=== PATIENT | female | born 1955 | race Caucasian/White ===

== ENCOUNTER → 2017-09-14 09:58 | Outpatient (POV) | payer OTHER, SELFPAY ==
[2017-09-14 10:15] VITALS: BP 127/75; PULSE 83; RESP 18; O2SAT 98
--- NOTE | 2017-09-14 10:39 | [facility]H.PMCON ---
Assessment and Plan (1) Degenerative disc disease, lumbar Current visit: Yes Status: Chronic Category: Medical Code(s): M51.36 - Other intervertebral disc degeneration, lumbar region (2) Lumbar radiculopathy Current visit: Yes Status: Chronic Category: Medical Code(s): M54.16 - Radiculopathy, lumbar region - Assessment and plan all Dx Assessment and Plan for all problems:: Discussed with the patient that we will be more than happy to do injective therapy or discussed neuro stimulation. Patient is uninterested in this at this time. Patient would like to be medically managed along with injective therapy. Patient will be seeing her primary care physician this week. She is going to discuss this with him. We will send this note to his office. This note was dictated using voice recognition software and may contain errors or omissions HPI - Data of Consult Consult date: 09/14/17 Requesting Physician: Gela Arellano APRN Primary Care Provider: Loc Bartholomew Family Provider: Dr. Gill - Consult Narrative Reason for consult: Back pain History of present illness: Ms. Cavaozs is a 61 year old female who presents today for consultation in regards to her back pain. Patient rates her pain today an 8 out of 10 mostly in her low back and down her right leg. Patient has been seen by Dr. Alexander with the [facility] pain management clinic however this is recently been shut down. Patient was receiving [place] 7.5 mg 1 p.o. 3 times daily along with injections. Patient states she does not know what kind of injections she was receiving. Patient states they did help somewhat. Patient was seen by a surgeon last week however she does not remember the name of the surgeon. Patient states she felt like the surgeon blew her off. Patient was deemed not a surgical candidate. I discussed with the patient that we do not do medical management but would be happy to discuss neuro stimulation or injective therapy. Patient states she feels that she needs to have her Lortab in order to be functional. Patient is going to go and speak with primary care physician. Tyler to the patient she has not done physical therapy. CC: Gela Arellano APRN [facility] History I have reviewed the patient's past medical history: Yes Medical History: Denies:: Diabetes Mellitus Type 1, Diabetes Mellitus Type 2 Other Medical History: Reports: Arthritis - *Social History Smoking Status: Current every day smoker Tobacco Type: cigarettes # Packs/Day (cigarettes): 1 #Yrs smoked (if former smoker): 15 Alcohol Intake: never Occupational Status: other Housing: house - Psychiatric History Expresses thoughts of harming self/others: None Suicide Plan Description: No Plan *Family Hx:: Unable to obtain Review of Systems - Review of Systems ROS General: no recent weight change, no fever, no sleep disturbances Respiratory: no cough, no shortness of air, no recurring pulmonary infections Cardiovascular/Peripheral Vascular: No chest pain, No palpitations, no edema, no shortness of breath. Gastrointestinal: no new onset incontinence, normal bowel movements reported Genitourinary: no new onset incontinence Musculoskeletal: Back pain, right leg pain Psychiatric: normal mood/ affect Neurological: Weakness in her right leg at times, [denies balance issues] Meds Home Medications Medication Instructions Recorded Confirmed Type Hydrocodone/Acetaminophen 1 each PO TID 09/14/17 09/14/17 History [Hydrocodon-Acetaminoph 7.5-325] Objective Vital signs: Pulse Resp BP Pulse Ox 83 18 127/75 98 09/14/17 10:15 09/14/17 10:15 09/14/17 10:15 09/14/17 10:15 Narrative: Physical Exam General: Alert and oriented x3, no acute distress, pleasant and cooperative, [on room air] Lungs: Resps E/U, Symmetrical chest expansion, Eyes: PERRL Musculoskeletal: Flexion and extension of lumbar spine somewhat guarded secon
--- NOTE | 2017-09-14 10:43 | P.CONS_ITS ---
Assessment and Plan (1) Degenerative disc disease, lumbar Current visit: Yes Status: Chronic Category: Medical Code(s): M51.36 - Other intervertebral disc degeneration, lumbar region (2) Lumbar radiculopathy Current visit: Yes Status: Chronic Category: Medical Code(s): M54.16 - Radiculopathy, lumbar region - Assessment and plan all Dx Assessment and Plan for all problems:: Discussed with the patient that we will be more than happy to do injective therapy or discussed neuro stimulation. Patient is uninterested in this at this time. Patient would like to be medically managed along with injective therapy. Patient will be seeing her primary care physician this week. She is going to discuss this with him. We will send this note to his office. This note was dictated using voice recognition software and may contain errors or omissions HPI - Data of Consult Consult date: 09/14/17 Requesting Physician: Gela Arellano APRN Primary Care Provider: Loc Bartholomew Family Provider: Dr. Gill - Consult Narrative Reason for consult: Back pain History of present illness: Ms. Cavazos is a 61 year old female who presents today for consultation in regards to her back pain. Patient rates her pain today an 8 out of 10 mostly in her low back and down her right leg. Patient has been seen by Dr. Alexander with the [facility] pain management clinic however this is recently been shut down. Patient was receiving [place] 7.5 mg 1 p.o. 3 times daily along with injections. Patient states she does not know what kind of injections she was receiving. Patient states they did help somewhat. Patient was seen by a surgeon last week however she does not remember the name of the surgeon. Patient states she felt like the surgeon blew her off. Patient was deemed not a surgical candidate. I discussed with the patient that we do not do medical management but would be happy to discuss neuro stimulation or injective therapy. Patient states she feels that she needs to have her Lortab in order to be functional. Patient is going to go and speak with primary care physician. Carroll to the patient she has not done physical therapy. CC: Gela Arellano APRN [facility] History I have reviewed the patient's past medical history: Yes Medical History: Denies:: Diabetes Mellitus Type 1, Diabetes Mellitus Type 2 Other Medical History: Reports: Arthritis - *Social History Smoking Status: Current every day smoker Tobacco Type: cigarettes # Packs/Day (cigarettes): 1 #Yrs smoked (if former smoker): 15 Alcohol Intake: never Occupational Status: other Housing: house - Psychiatric History Expresses thoughts of harming self/others: None Suicide Plan Description: No Plan *Family Hx:: Unable to obtain Review of Systems - Review of Systems ROS General: no recent weight change, no fever, no sleep disturbances Respiratory: no cough, no shortness of air, no recurring pulmonary infections Cardiovascular/Peripheral Vascular: No chest pain, No palpitations, no edema, no shortness of breath. Gastrointestinal: no new onset incontinence, normal bowel movements reported Genitourinary: no new onset incontinence Musculoskeletal: Back pain, right leg pain Psychiatric: normal mood/ affect Neurological: Weakness in her right leg at times, [denies balance issues] Meds Home Medications Medication Instructions Recorded Confirmed Type Hydrocodone/Acetaminophen 1 each PO TID 09/14/17 09/14/17 History [Hydrocodon-Aceta
== END ==
PROVIDERS: PCP Family Medicine; Visit Provider Clinical Nurse Specialist Family Health
DX: M51.36 Other intervertebral disc degeneration, lumbar region (principal); M54.16 Radiculopathy, lumbar region
CPT/HCPCS: 99202